=== PATIENT | male | born 1960 | race Caucasian/White ===

== ENCOUNTER 2016-11-18 15:00 | Emergency (ER) | payer OTHER ==
--- NOTE | 2016-11-18 15:09 | ED ---
General Adult HPI - General Source: RN notes reviewed <Ole Orantes - Last Filed: 11/18/16 16:50> <Leonid Masters - Last Filed: 11/18/16 18:14> - General Stated complaint: Sob Time Seen by Provider: 11/18/16 15:00 - History of Present Illness Initial comments: This is a 55-year-old male who has been diagnosed with stage IV cancer he is unable to tell me exactly where the cancer started. Patient states he has tumors in his neck back and chest. Patient states he called EMS today because he was short of breath. EMS stated when they got there the patient was quite short of breath and put him on some oxygen and started an IV in and began transporting the patient. At that point and the patient's shortness of breath got much improved. Patient also complains of chest pain and abdominal pain which she states is been chronic for at least 6 weeks. Patient states his been no change in that status. Patient denies any recent fever chills or cough. Patient denies headache patient denies any numbness or weakness. Patient denies any injury or trauma. Patient states he is receiving chemo is not on the last treatment was. (Ole Orantes) - Related Data Home Medications Medication Instructions Recorded Confirmed Chromium Picolinate 200 mcg PO DAILY 11/18/16 11/18/16 Levofloxacin [Levaquin] 750 mg PO DAILY 11/18/16 11/18/16 Metoclopramide HCl [Reglan] 10 mg PO TID 11/18/16 11/18/16 amLODIPine [Norvasc] 5 mg PO DAILY 11/18/16 11/18/16 levETIRAcetam [Keppra] 500 mg PO DAILY 11/18/16 11/18/16 oxyCODONE-APAP 5-325MG [Percocet 1 tab PO Q4HR PRN 11/18/16 11/18/16 5-325 mg] predniSONE 40 mg PO DAILY 11/18/16 11/18/16 Allergies Allergy/AdvReac Type Severity Reaction Status Date / Time No Known Allergies Allergy Verified 11/18/16 15:12 Review of Systems ROS Other: All systems not noted in ROS Statement are negative. <Ole Orantes - Last Filed: 11/18/16 16:50> ROS Other: All systems not noted in ROS Statement are negative. <GuerreroLeonid - Last Filed: 11/18/16 18:14> ROS Statement: Those systems with pertinent positive or pertinent negative responses have been documented in the HPI. General Exam <Ole Orantes - Last Filed: 11/18/16 16:50> <GuerreroLeonid - Last Filed: 11/18/16 18:14> - General Exam Comments Initial Comments: GENERAL: Patient is cachectic. ENT: Neck is soft and supple. No significant lymphadenopathy is noted. Oropharynx is clear. Moist mucous membranes. Patient is a tumor left-sided neck EYES: The sclera were anicteric and conjunctiva were pink and moist. Extraocular movements were intact and pupils were equal round and reactive to light. Eyelids were unremarkable. PULMONARY: Patient has diminished breath sounds throughout CARDIOVASCULAR: There is a regular rate and rhythm without any murmurs gallops or rubs. Patient has a tumor on his anterior chest wall ABDOMEN: Abdomen has mild tenderness diffusely no rebound or guarding SKIN: Skin is clear with no lesions or rashes and otherwise unremarkable. NEUROLOGIC: Patient is alert and oriented x3. Cranial nerves II through XII are grossly intact. Motor and sensory are also intact. Normal speech, volume and content. Symmetrical smile. MUSCULOSKELETAL: Normal extremities with adequate strength and full range of motion. Patient has 3+ edema bilaterally LYMPHATICS: No significant lymphadenopathy is noted PSYCHIATRIC: Normal psychiatric evaluation. (Ole Orantes) Course <Ole Orantes - Last Filed: 11/18/16 16:50> <GuerreroLeonid - Last Filed: 11/18/16 18:14> Vital Signs 11/18/16 11/18/16 11/18/16 15:03 16:10 17:00 Pulse Rate 98 100 98 Respiratory 20 18 18 Rate Blood Pressure 114/76 135/81 140/69 O2 Sat by Pulse 99 94 L 96 Oximetry - Reevaluation(s) Reevaluation #1: 11/18/16 18:12 Patient is feeling totally improved and better normally wants be discharged I did discuss the findings with him he does have close follow-up with his daughter he will be discharged CAT scan shows no acute evidence of pulmonary embolism because have evidence of pulmonary tumors (Leonid Masters) Medical Decision Making - Lab Data Result diagrams: 11/18/16 15:41 11/18/16 15:41 <Ole Orantes - Last Filed: 11/18/16 16:50> - Lab Data Result diagrams: 11/18/16 15:41 11/18/16 15:41 <Leonid Masters - Last Filed: 11/18/16 18:14> - Medical Decision Making EKG shows normal sinus rhythm at 70 bpm [place] interval is 126 QRS is 78 QT interval 366 QTC is 417. Patient's EKG shows no ST segment elevation or depression or T-wave abnormalities are noted Dr. Masters will be taking over the care of this patient at 5 PM (Ole Orantes) - Lab Data Lab Results 11/18/16 11/18/16 11/18/16 Range/Units 15:41 15:41 15:41 WBC 10.8 H (3.8-10.6) k/uL RBC 3.04 L (4.30-5.90) m/uL Hgb 8.9 L (13.0-17.5) gm/dL Hct 26.7 L (39.0-53.0) % MCV 87.9 (80.0-100.0) fL MCH 29.4 (25.0-35.0) pg MCHC 33.4 (31.0-37.0) g/dL RDW 17.0 H (11.5-15.5) % Plt Count 316 (150-450) k/uL Neutrophils % 85 % Lymphocytes % 11 % Monocytes % 3 % Eosinophils % 0 % Basophils % 0 % Neutrophils # 9.1 H (1.3-7.7) k/uL Lymphocytes # 1.2 (1.0-4.8) k/uL Monocytes # 0.3 (0-1.0) k/uL Eosinophils # 0.0 (0-0.7) k/uL Basophils # 0.0 (0-0.2) k/uL Hypochromasia Slight Poikilocytosis Slight Anisocytosis Slight PT 10.9 (9.0-12.0) sec INR 1.1 (<1.1) APTT 22.0 (22.0-30.0) sec D-Dimer 3.65 H (<0.60) mg/L FEU Sodium 135 L (137-145) mmol/L Potassium 4.4 (3.5-5.1) mmol/L Chloride 101 (98-107) mmol/L Carbon Dioxide 29 (22-30) mmol/L Anion Gap 5 mmol/L BUN 23 H (9-20) mg/dL Creatinine 0.60 L (0.66-1.25) mg/dL Est GFR (MDRD) Af Amer >60 (>60 ml/min/1.73 sqM) Est GFR (MDRD) Non-Af >60 (>60 ml/min/1.73 sqM) Glucose 92 (74-99) mg/dL Calcium 8.9 (8.4-10.2) mg/dL Magnesium 2.0 (1.6-2.3) mg/dL Total Bilirubin 0.3 (0.2-1.3) mg/dL AST 34 (17-59) U/L ALT 29 (21-72) U/L Alkaline Phosphatase 85 (38-126) U/L Total Creatine Kinase (55-170) U/L CK-MB (CK-2) (0.0-2.4) ng/mL CK-MB (CK-2) Rel Index Troponin I (0.000-0.034) ng/mL NT-Pro-B Natriuret Pep pg/mL Total Protein 5.2 L (6.3-8.2) g/dL Albumin 2.3 L (3.5-5.0) g/dL 11/18/16 11/18/16 Range/Units 15:41 15:41 WBC (3.8-10.6) k/uL RBC (4.30-5.90) m/uL Hgb (13.0-17.5) gm/dL Hct (39.0-53.0) % MCV (80.0-100.0) fL MCH (25.0-35.0) pg MCHC (31.0-37.0) g/dL RDW (11.5-15.5) % Plt Count (150-450) k/uL Neutrophils % % Lymphocytes % % Monocytes % % Eosinophils % % Basophils % % Neutrophils # (1.3-7.7) k/uL Lymphocytes # (1.0-4.8) k/uL Monocytes # (0-1.0) k/uL Eosinophils # (0-0.7) k/uL Basophils # (0-0.2) k/uL Hypochromasia Poikilocytosis Anisocytosis PT (9.0-12.0) sec INR (<1.1) APTT (22.0-30.0) sec D-Dimer (<0.60) mg/L FEU Sodium (137-145) mmol/L Potassium (3.5-5.1) mmol/L Chloride (98-107) mmol/L Carbon Dioxide (22-30) mmol/L Anion Gap mmol/L BUN (9-20) mg/dL Creatinine (0.66-1.25) mg/dL Est GFR (MDRD) Af Amer (>60 ml/min/1.73 sqM) Est GFR (MDRD) Non-Af (>60 ml/min/1.73 sqM) Glucose (74-99) mg/dL Calcium (8.4-10.2) mg/dL Magnesium (1.6-2.3) mg/dL Total Bilirubin (0.2-1.3) mg/dL AST (17-59) U/L ALT (21-72) U/L Alkaline Phosphatase (38-126) U/L Total Creatine Kinase <20 L (55-170) U/L CK-MB (CK-2) 1.4 (0.0-2.4) ng/mL CK-MB (CK-2) Rel Index 0.0 Troponin I 0.013 (0.000-0.034) ng/mL NT-Pro-B Natriuret Pep 2440 pg/mL Total Protein (6.3-8.2) g/dL Albumin (3.5-5.0) g/dL Disposition <Ole Orantes - Last Filed: 11/18/16 16:50> <Leonid Masters - Last Filed: 11/18/16 18:14> Clinical Impression: Acute bronchospasm, Dyspnea, Lung cancer Disposition: HOME SELF-CARE Condition: Good Instructions: Bronchospasm (ED) Referrals: Jeison Dasilva MD [Primary Care Provider] - 1-2 days
--- NOTE | 2016-11-18 15:47 | XR ---
EXAMINATION TYPE: XR chest 2V DATE OF EXAM: 11/18/2016 COMPARISON: NONE HISTORY: Difficulty breathing TECHNIQUE: Frontal and lateral views of the chest are obtained. FINDINGS: There are numerous rounded masses throughout the lungs that measure up to 3.5 cm. There is conglomerate density at the posterior lung bases. There are chest leads. There is no gross heart jesus alberto lure. Heart size is within normal limits. IMPRESSION: Extensive masses throughout both lungs consistent with metastatic disease. No heart fail ure.
[2016-11-18 16:01] LABS: Anisocytosis Slight; Basophils % (A) 0 %; CH 28.7; CHCM 32.9; Eosinophils % (A) 0 %; HCT 26.7 % (39.0-53.0); HDW 3.42; HGB 8.9 gm/dL (13.0-17.5); Hypochromasia Slight; Luc # (Auto) 0.09; Luc % (Auto) 1; Lymphocytes # (A) 1.2 k/uL (1.0-4.8); Lymphocytes % (A) 11 %; MCH 29.4 pg (25.0-35.0); MCHC 33.4 g/dL (31.0-37.0); MCV 87.9 fL (80.0-100.0); Mean Platelet Volume 6.8; Monocytes # (A) 0.3 k/uL (0-1.0); Monocytes % (A) 3 %; Neutrophils # (A) 9.1 k/uL (1.3-7.7); Neutrophils % (A) 85 %; Poikilocytosis Slight; RBC 3.04 m/uL (4.30-5.90); WBC 10.8 k/uL (3.8-10.6); WBC (Perox) 10.06
[2016-11-18 16:18] LABS: ALT 29 U/L (21-72); AST 34 U/L (17-59); Alkaline Phosphatase 85 U/L (38-126); Anion Gap 5 mmol/L; Blood Urea Nitrogen 23 mg/dL (9-20); Calcium 8.9 mg/dL (8.4-10.2); Carbon Dioxide 29 mmol/L (22-30); Chloride 101 mmol/L (98-107); Glucose 92 mg/dL (74-99); Non-African American GFR(MDRD) >60 (>60 ml/min/1.73 sqM); Potassium 4.4 mmol/L (3.5-5.1); Sodium 135 mmol/L (137-145); Total Bilirubin 0.3 mg/dL (0.2-1.3); Total Protein 5.2 g/dL (6.3-8.2)
[2016-11-18 16:20] LABS: Creatine Kinase <20 U/L (55-170)
[2016-11-18 16:25] LABS: INR 1.1 (<1.1); Prothrombin Time 10.9 sec (9.0-12.0)
[2016-11-18 16:33] LABS: Creatine Kinase MB 1.4 ng/mL (0.0-2.4); Troponin I 0.013 ng/mL (0.000-0.034)
[2016-11-18] MEDS ORDERED: RX INFO: IV CONTRAST WAS GIVEN 1 EACH MISC MISCELLANE PRN (16:49)
--- NOTE | 2016-11-18 17:35 | CT ---
EXAMINATION TYPE: CT chest angio for PE DATE OF EXAM: 11/18/2016 COMPARISON: NONE HISTORY: shortness of breath CT DLP: 139.4 mGycm Automated exposure control for dose reduction was used. CONTRAST: CT Chest for pulmonary embolism performed with with IV Contrast, patient injected with 100 mL of Omni paque 350. There are 3-D post processed images. FINDINGS: There are numerous soft tissue masses throughout the lungs that measure up to 3 cm. There is bilatera l bronchial adenopathy. There is subcarinal adenopathy with a 3.5 cm lymph node. Heart size is normal . I see no filling defects in the pulmonary arteries. There is consolidation in the right lower lobe with multiple air bubbles. This appears to be a cavity that contains air and fluid. This measures 5 x 6 cm. There is no evidence of aortic aneurysm or dissection. There is some 4 cm destruction of an an terior right upper rib with pleural thickening. There is a small left pleural effusion. IMPRESSION: No evidence of pulmonary embolism. Extensive bilateral pulmonary masses consistent with metastatic ma lignancy. Fluid and air-filled cavity in the right lower lobe could be necrotic tumor or lung abscess . Extensive mediastinal and bronchial adenopathy. Destructive rib lesion consistent with metastatic dis ease.
[2016-11-18 18:55] VITALS: BP 136/76; PULSE 77; RESP 20; TEMP 98.4
== END 2016-11-18 18:55 | disposition home or self-care (01) ==
LOC: EC 15:00
DX: J98.01 Acute bronchospasm (principal); C34.90 Malignant neoplasm of unspecified part of unspecified bronchus or lung; Z79.52 Long term (current) use of systemic steroids; Z79.899 Other long term (current) drug therapy
CPT/HCPCS: 36415; 93005; 85379; 83880; 80053; 82550; 82553; 83735; 84484; 85025; 85610; 85730; 71020; 71275; 99285; Q9967

== ENCOUNTER 2016-11-23 12:47 | Inpatient (IN) | payer OTHER ==
[2016-11-23] MEDS ORDERED: SODIUM CHLORIDE 0.9% 1,000 ML IV STA (13:03)
--- NOTE | 2016-11-23 13:07 | ED ---
General Adult HPI - General Chief complaint: Weakness Stated complaint: Weakness Time Seen by Provider: 11/23/16 12:50 Source: patient, family, RN notes reviewed Mode of arrival: wheelchair Limitations: no limitations - History of Present Illness Initial comments: This is a 55-year-old male with a past medical history significant for melanoma on his back. Patient now has stage IV melanoma is metastasized to his lung and neck. Patient comes in today because he has not been able to eat since he left the hospital last time he was offered admission at that time but he refused. Patient comes in states he is extremely weak and can't even sit up in bed on his own. Patient denies any nausea but states she's been unable to eat or drink lately. Patient states he has abdominal pain but that has been chronic. Patient denies any recent fever or chills. Patient denies any cough patient denies any recent injury or trauma. Patient denies headache patient denies numbness or weakness. Patient denies lightheadedness dizziness or near syncopal episode. - Related Data Home Medications Medication Instructions Recorded Confirmed Chromium Picolinate 200 mcg PO DAILY 11/18/16 11/23/16 amLODIPine [Norvasc] 5 mg PO DAILY 11/18/16 11/23/16 levETIRAcetam [Keppra] 500 mg PO BID 11/18/16 11/23/16 oxyCODONE-APAP 5-325MG [Percocet 1 tab PO Q4HR PRN 11/18/16 11/23/16 5-325 mg] Albuterol Sulfate [Ventolin Hfa] 2 puff INHALATION RT-Q6H PRN 11/23/16 11/23/16 Ipratropium-Albuterol Nebulize 3 ml INHALATION RT-QID 11/23/16 11/23/16 [Duoneb 0.5 mg-3 mg/3 ml Soln] Ondansetron [Zofran ODT] 4 mg PO Q8HR PRN 11/23/16 11/23/16 Allergies Allergy/AdvReac Type Severity Reaction Status Date / Time Penicillins Allergy Rash/Hives Verified 11/23/16 13:15 Review of Systems ROS Statement: Those systems with pertinent positive or pertinent negative responses have been documented in the HPI. ROS Other: All systems not noted in ROS Statement are negative. Past Medical History Past Medical History: Hypertension, Seizure Disorder Additional Past Medical History / Comment(s): Stage IV Melanoma - multiple tumors all over body History of Any Multi-Drug Resistant Organisms: None Reported Past Surgical History: No Surgical Hx Reported Past Psychological History: Anxiety Smoking Status: Current every day smoker Past Alcohol Use History: None Reported Past Drug Use History: None Reported General Exam - General Exam Comments Initial Comments: GENERAL: Patient is well-developed and well-nourished. Patient is nontoxic and well- hydrated and is in no acute distress. Patient is very cachectic ENT: Neck is soft and supple. No significant lymphadenopathy is noted. Oropharynx is clear. Dry mucous membranes. Neck has full range of motion without eliciting any pain. EYES: The sclera were anicteric and conjunctiva were pink and moist. Extraocular movements were intact and pupils were equal round and reactive to light. Eyelids were unremarkable. PULMONARY: Unlabored respirations. Good breath sounds bilaterally. No audible rales rhonchi or wheezing was noted. CARDIOVASCULAR: There is a regular rate and rhythm without any murmurs gallops or rubs. ABDOMEN: Mild tenderness diffusely. No palpable organomegaly was noted. There is no palpable pulsatile mass. SKIN: Skin is clear with no lesions or rashes and otherwise unremarkable. NEUROLOGIC: Patient is alert and oriented x3. Cranial nerves II through XII are grossly intact. Motor and sensory are also intact. Normal speech, volume and content. Symmetrical smile. MUSCULOSKELETAL: Normal extremities with adequate strength and full range of motion. No lower extremity swelling or edema. No calf tenderness. LYMPHATICS: No significant lymphadenopathy is noted PSYCHIATRIC: Normal psychiatric evaluation. Normal interpersonal interactions appears functionally intact in deals appropriately with others. No signs of depression. No signs of anxiety. Limitations: no limitations Course Vital Signs 11/23/16 11/23/16 12:50 15:05 Temperature 96.9 F L Pulse Rate 99 74 Respiratory 18 16 Rate Blood Pressure 110/73 126/72 O2 Sat by Pulse 95 100 Oximetry Medical Decision Making - Medical Decision Making EKG shows normal sinus rhythm at 94 bpm ID interval 132 QRS is 84 QT interval 378 QTC is 472 per patient's EKG shows no ST segment elevation or depression or T-wave abnormality is noted. - Lab Data Result diagrams: 11/23/16 13:29 11/23/16 13:29 Lab Results 07/02/0111/23/16 11/23/16 Range/Units 13:29 13:29 13:29 WBC 13.5 H (3.8-10.6) k/uL RBC 3.45 L (4.30-5.90) m/uL Hgb 9.9 L (13.0-17.5) gm/dL Hct 30.4 L (39.0-53.0) % MCV 88.1 (80.0-100.0) fL MCH 28.8 (25.0-35.0) pg MCHC 32.7 (31.0-37.0) g/dL RDW 16.6 H (11.5-15.5) % Plt Count 403 (150-450) k/uL Neutrophils % 85 % Lymphocytes % 12 % Monocytes % 2 % Eosinophils % 1 % Basophils % 0 % Neutrophils # 11.4 H (1.3-7.7) k/uL Lymphocytes # 1.6 (1.0-4.8) k/uL Monocytes # 0.3 (0-1.0) k/uL Eosinophils # 0.1 (0-0.7) k/uL Basophils # 0.0 (0-0.2) k/uL Poikilocytosis Slight Anisocytosis Slight PT (9.0-12.0) sec INR (<1.1) APTT (22.0-30.0) sec Sodium 137 (137-145) mmol/L Potassium 4.6 (3.5-5.1) mmol/L Chloride 103 (98-107) mmol/L Carbon Dioxide 26 (22-30) mmol/L Anion Gap 8 mmol/L BUN 30 H (9-20) mg/dL Creatinine 0.70 (0.66-1.25) mg/dL Est GFR (MDRD) Af Amer >60 (>60 ml/min/1.73 sqM) Est GFR (MDRD) Non-Af >60 (>60 ml/min/1.73 sqM) Glucose 85 (74-99) mg/dL Plasma Lactic Acid Stephan (0.7-2.0) mmol/L Calcium 8.9 (8.4-10.2) mg/dL Magnesium 2.2 (1.6-2.3) mg/dL Total Bilirubin 0.6 (0.2-1.3) mg/dL AST 32 (17-59) U/L ALT 24 (21-72) U/L Alkaline Phosphatase 80 (38-126) U/L Total Creatine Kinase <20 L (55-170) U/L CK-MB (CK-2) 1.3 (0.0-2.4) ng/mL CK-MB (CK-2) Rel Index 0.0 Troponin I <0.012 (0.000-0.034) ng/mL Total Protein 5.0 L (6.3-8.2) g/dL Albumin 2.2 L (3.5-5.0) g/dL Urine Color Urine Appearance (Clear) Urine pH (5.0-8.0) Ur Specific [place] (1.001-1.035) Urine Protein (Negative) Urine Glucose (UA) (Negative) Urine Ketones (Negative) Urine Blood (Negative) Urine Nitrite (Negative) Urine Bilirubin (Negative) Urine Urobilinogen (<2.0) mg/dL Ur Leukocyte Esterase (Negative) Urine RBC (0-5) /hpf Urine WBC (0-5) /hpf Ur Squamous Epith Cells (0-4) /hpf Urine Bacteria (None) /hpf Urine Mucus (None) /hpf 11/23/16 11/23/16 11/23/16 Range/Units 13:29 13:29 14:48 WBC (3.8-10.6) k/uL RBC (4.30-5.90) m/uL Hgb (13.0-17.5) gm/dL Hct (39.0-53.0) % MCV (80.0-100.0) fL MCH (25.0-35.0) pg MCHC (31.0-37.0) g/dL RDW (11.5-15.5) % Plt Count (150-450) k/uL Neutrophils % % Lymphocytes % % Monocytes % % Eosinophils % % Basophils % % Neutrophils # (1.3-7.7) k/uL Lymphocytes # (1.0-4.8) k/uL Monocytes # (0-1.0) k/uL Eosinophils # (0-0.7) k/uL Basophils # (0-0.2) k/uL Poikilocytosis Anisocytosis PT 11.4 (9.0-12.0) sec INR 1.1 (<1.1) APTT 21.9 L (22.0-30.0) sec Sodium (137-145) mmol/L Potassium (3.5-5.1) mmol/L Chloride (98-107) mmol/L Carbon Dioxide (22-30) mmol/L Anion Gap mmol/L BUN (9-20) mg/dL Creatinine (0.66-1.25) mg/dL Est GFR (MDRD) Af Amer (>60 ml/min/1.73 sqM) Est GFR (MDRD) Non-Af (>60 ml/min/1.73 sqM) Glucose (74-99) mg/dL Plasma Lactic Acid Stephan 1.3 (0.7-2.0) mmol/L Calcium (8.4-10.2) mg/dL Magnesium (1.6-2.3) mg/dL Total Bilirubin (0.2-1.3) mg/dL AST (17-59) U/L ALT (21-72) U/L Alkaline Phosphatase (38-126) U/L Total Creatine Kinase (55-170) U/L CK-MB (CK-2) (0.0-2.4) ng/mL CK-MB (CK-2) Rel Index Troponin I (0.000-0.034) ng/mL Total Protein (6.3-8.2) g/dL Albumin (3.5-5.0) g/dL Urine Color Yellow Urine Appearance Cloudy (Clear) Urine pH 5.5 (5.0-8.0) Ur Specific [place] 1.032 (1.001-1.035) Urine Protein 1+ H (Negative) Urine Glucose (UA) Negative (Negative) Urine Ketones 1+ H (Negative) Urine Blood Negative (Negative) Urine Nitrite Negative (Negative) Urine Bilirubin 1+ H (Negative) Urine Urobilinogen <2.0 (<2.0) mg/dL Ur Leukocyte Esterase Negative (Negative) Urine RBC 1 (0-5) /hpf Urine WBC 4 (0-5) /hpf Ur Squamous Epith Cells <1 (0-4) /hpf Urine Bacteria Rare H (None) /hpf Urine Mucus Few H (None) /hpf Disposition Clinical Impression: Dehydration, Generalized weakness, Metastatic cancer to lung, Liver mass, Rib lesion, Cavitating mass in right lower lung lobe Disposition: ADMITTED IP TO THIS HOSP Referrals: eJison Dasilva MD [Primary Care Provider] - 1-2 days Time of Disposition: 15:38
[2016-11-23 13:42] LABS: Anisocytosis Slight; Basophils % (A) 0 %; CHCM 33.2; Eosinophils # (A) 0.1 k/uL (0-0.7); Eosinophils % (A) 1 %; HCT 30.4 % (39.0-53.0); HDW 3.44; HGB 9.9 gm/dL (13.0-17.5); Luc # (Auto) 0.08; Luc % (Auto) 1; Lymphocytes # (A) 1.6 k/uL (1.0-4.8); Lymphocytes % (A) 12 %; MCH 28.8 pg (25.0-35.0); MCHC 32.7 g/dL (31.0-37.0); MCV 88.1 fL (80.0-100.0); Monocytes # (A) 0.3 k/uL (0-1.0); Monocytes % (A) 2 %; Neutrophils # (A) 11.4 k/uL (1.3-7.7); Neutrophils % (A) 85 %; Poikilocytosis Slight; RBC 3.45 m/uL (4.30-5.90); RDW 16.6 % (11.5-15.5); WBC 13.5 k/uL (3.8-10.6); WBC (Perox) 13.41
[2016-11-23 13:51] LABS: ALT 24 U/L (21-72); AST 32 U/L (17-59); Alkaline Phosphatase 80 U/L (38-126); Anion Gap 8 mmol/L; Blood Urea Nitrogen 30 mg/dL (9-20); Calcium 8.9 mg/dL (8.4-10.2); Carbon Dioxide 26 mmol/L (22-30); Chloride 103 mmol/L (98-107); Glucose 85 mg/dL (74-99); Magnesium 2.2 mg/dL (1.6-2.3); Non-African American GFR(MDRD) >60 (>60 ml/min/1.73 sqM); Potassium 4.6 mmol/L (3.5-5.1); Sodium 137 mmol/L (137-145); Total Bilirubin 0.6 mg/dL (0.2-1.3)
[2016-11-23 13:56] LABS: INR 1.1 (<1.1)
[2016-11-23 13:57] LABS: Partial Thromboplastin Time 21.9 sec (22.0-30.0); Prothrombin Time 11.4 sec (9.0-12.0)
[2016-11-23 14:01] LABS: Creatine Kinase <20 U/L (55-170)
[2016-11-23 14:13] LABS: Creatine Kinase MB 1.3 ng/mL (0.0-2.4); Troponin I <0.012 ng/mL (0.000-0.034)
[2016-11-23] MEDS ORDERED: RX INFO: IV CONTRAST WAS GIVEN 1 EACH MISC MISCELLANE PRN (14:13)
--- NOTE | 2016-11-23 14:59 | CT ---
EXAMINATION TYPE: CT abdomen pelvis w con DATE OF EXAM: 11/23/2016 COMPARISON: NONE HISTORY: Weakness; Stage IV Melanoma with mulitple tumors CT DLP: 385.90 mGycm Automated exposure control for dose reduction was used. TECHNIQUE: Helical acquisition of images was performed from the lung bases through the pelvis. CONTRAST: Performed without Oral Contrast and with IV Contrast, patient injected with 100 ml mL of Omnipaque 30 0. FINDINGS: There are multiple rounded masses in the visualized lower lung campos. There is a 5 cm cavitating mas s in the right lower lobe that contains fluid and air. There is a 2 cm hypodensity in the right lobe of the liver. Bile ducts are not dilated. Gallbladder a ppears normal. There is no evidence of a splenic mass. There are multiple small calcified splenic gra nulomata. There is no adrenal mass. Kidneys show satisfactory contrast opacification. There is no hydronephrosi s. There is no retroperitoneal adenopathy. There is moderate ascites fluid noted. I see no intestinal wall thickening. There is no sign of a bowel obstruction. Bladder distends smoothly. I see no bony d estructive process. There is bilateral pleural effusion noted. Heart size is normal. IMPRESSION: MULTIPLE PULMONARY MASSES CONSISTENT WITH DIFFUSE METASTATIC DISEASE. 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 ASCITES. 2 CM HYPODENSE LIVER LESION COULD RELATE TO METASTATIC DISEASE.
[2016-11-23 15:01] LABS: Appearance,Urine Cloudy (Clear); Bacteria,Urine Rare /hpf; Bilirubin,Urine 1+ (Negative); Glucose,Urine (UA) Negative (Negative); Ketones,Urine 1+ (Negative); Leukocyte Esterase,Urine Negative (Negative); Mucus,Urine Few /hpf; Nitrite,Urine Negative (Negative); PH, Urine 5.5 (5.0-8.0); Particle Count 9933; Protein,Urine 1+ (Negative); RBC,Urine 1 /hpf (0-5); Specific Gravity,Urine 1.032 (1.001-1.035); Squamous Epithelial Cell,Urine <1 /hpf (0-4); UA Billing (MACRO vs. MICRO) MICRO; Urobilinogen,Urine <2.0 mg/dL (<2.0); WBC,Urine 4 /hpf (0-5)
[2016-11-23] MEDS ORDERED: SODIUM CHLORIDE 0.9% 1,000 ML IV ONE (15:38)
[2016-11-23] MEDS ORDERED: ONDANSETRON 4 MG/2 ML VIAL IVP PRN (15:41)
[2016-11-23] MEDS ORDERED: LEVOFLOXACIN 750MG-D5W PMX 750 MG in DEXTROSE/WATER 1 150ML.BAG IVPB SCH (16:15)
[2016-11-23] MEDS: LEVOFLOXACIN 750MG-D5W PMX 750 MG in DEXTROSE/WATER 1 150ML.BAG IVPB STA ×2 (16:39→18:26)
[2016-11-23 16:50] VITALS: BMI 19.8
[2016-11-23] MEDS ORDERED: ALBUTEROL NEBULIZED 2.5 MG/3 ML INHALATION PRN ×2 (17:55→22:30)
[2016-11-23] MEDS: HYDROmorphone 1 MG/ML 1 ML SYRINGE IVP PRN (18:26)
[2016-11-23] MEDS: IPRATROPIUM-ALBUTEROL 3 ML NEB INHALATION SCH (19:42)
[2016-11-23] MEDS: levETIRAcetam 500 MG TAB PO SCH (19:48)
[2016-11-23] MEDS: oxyCODONE-APAP 5-325MG 1 EACH TAB PO PRN (19:49)
[2016-11-23] MEDS: NICOTINE 14MG/24HR PATCH TRANSDERM SCH (22:48)
[2016-11-24] MEDS: HYDROmorphone 1 MG/ML 1 ML SYRINGE IVP PRN ×3 (05:59→16:43)
[2016-11-24] MEDS: IPRATROPIUM-ALBUTEROL 3 ML NEB INHALATION SCH ×2 (07:26→11:45)
[2016-11-24] MEDS: oxyCODONE-APAP 5-325MG 1 EACH TAB PO PRN (08:14)
[2016-11-24] MEDS: levETIRAcetam 500 MG TAB PO SCH (08:14)
[2016-11-24] MEDS: NICOTINE 14MG/24HR PATCH TRANSDERM SCH (08:14)
[2016-11-24] MEDS ORDERED: amLODIPine 5 MG TAB PO SCH (09:00)
[2016-11-24] MEDS: NYSTATIN 100,000 UNIT/ML SUSP 500,000 UNIT/5 ML CUP PO SCH ×2 (12:31→16:47)
--- NOTE | 2016-11-24 12:54 | P.HPIM ---
History of Present Illness H&P Date: 11/24/16 Chief Complaint: Severe dyspnea and shortness of breath, obstructive pneumonitis , advanced m 55-year-old male one of Dr. Dasilva's patient who SEEN lost at [facility] few weeks ago for refractory seizure and recurrent pneumonia patient was treated again last week at [facility] for few days and has been leaving the hospital sometimes AGAINST MEDICAL ADVICE is frustrated with the end-stage advanced melanoma with metastasis all over his body is going through his metastasis involve multiple spot in the brain multiple spot in the lungs liver and lymph node. Patient seen hematology oncology previously Allee management can be done is an immunotherapy patient had an immune suppressive condition was a contraindication. Patient was in the emergency room 2 days it earlier for worsening shortness of breath dyspnea severe weakness generalized fatigue not been able to tolerate any food or fluid and persistent nausea with significant weight loss he sign AMA at the time refused to stay in the hospital. [facility] with severe generalized fatigue and weakness and tiredness not been able to tolerate any food or fluid down significant shortness of breath cough wheezes with worsening respiration at the time. Was seen and evaluated surprisingly his chest x-ray showed multiple spot of metastasis along with cavitation and refractory obstructive pneumonitis started on gram-negative coverage and admitted to the hospital with above problem. Review of Systems Constitutional: Reports anorexia, Reports chronic headaches, Reports chronic pain, Reports daytime sleepiness, Reports fatigue, Reports lethargy, Reports malaise, Reports night sweats, Reports poor appetite, Reports sweats, Reports weakness, Reports weight loss, Denies as per HPI, Denies chills, Denies fever, Denies weight gain Eyes: bilateral as per HPI Ears: deny: decreased hearing Ears, nose, mouth and throat: Reports ant. neck pain, Reports dysphagia, Reports nasal congestion, Reports sinus pressure, Reports swelling in mouth, Denies as per HPI, Denies bleeding gums, Denies dental pain, Denies epistaxis, Denies headache, Denies hoarseness, Denies mouth pain, Denies nasal discharge, Denies neck fullness/pressure, Denies neck lump, Denies nose pain, Denies odynophagia, Denies post-nasal drip, Denies sinus pain, Denies swelling in throat, Denies sore throat, Denies vertigo, Denies voice changes Cardiovascular: Reports chest pain, Reports decreased exercise tolerance, Reports dyspnea on exertion, Reports edema, Reports high blood pressure, Reports irregular heart beat, Reports leg edema, Reports lightheadedness, Reports orthopnea, Reports paroxysmal nocturnal dyspnea, Reports rapid heart beat, Reports shortness of breath, Denies as per HPI, Denies claudication, Denies palpitations, Denies phlebitis, Denies syncope Respiratory: Reports congestion, Reports cough, Reports cough with sputum, Reports dyspnea, Reports pain, Reports respiratory infections, Reports wheezing , Denies as per HPI, Denies excessive sputum, Denies hemoptysis, Denies home oxygen, Denies pain on inspiration, Denies pleurisy, Denies sleep apnea, Denies snoring Gastrointestinal: Reports abdominal pain, Reports bloating, Reports constipation , Reports dyspepsia, Reports indigestion, Reports loss of appetite, Reports nausea, Reports vomiting, Denies as per HPI, Denies belching, Denies BRBPR, Denies change in bowel habits, Denies coffee ground emesis, Denies diarrhea, Denies early satiety, Denies excessive gas, Denies heartburn, Denies hematemesis , Denies hematochezia, Denies jaundice, Denies lactose intolerance, Denies melena Genitourinary: Reports testicular pain, Denies as per HPI, Denies decreased libido, Denies difficulties fathering child, Denies discharge, Denies dysuria, Denies erectile dysfunction, Denies flank pain, Denies genital pain, Denies genital sores, Denies hematuria, Denies impotence, Denies incontinence, Denies kidney stones, Denies nocturia, Denies polyuria, Denies testicular lump, Denies urinary frequency, Denies urinary hesitancy, Denies urinary retention Musculoskeletal: Reports limitation of motion, Reports low back pain, Reports muscle cramps, Reports myalgias, Reports neck pain, Reports neck stiffness, Denies as per HPI, Denies arm numbness/tingling, Denies atrophy, Denies fractures, Denies frequent falls, Denies gait dysfunction, Denies hot joints, Denies leg numbness/tingling, Denies loss of height, Denies morning stiffness, Denies muscle weakness, Denies prior amputations, Denies redness of joints, Denies shooting arm pain, Denies shooting leg pain Musculoskeletal: bilateral: ankle pain Integumentary: Reports change in hair/nails, Reports growths, Reports onychomycosis, Reports pruritus, Reports rash, Denies as per HPI, Denies acne, Denies boils, Denies brittle nails, Denies color changes, Denies darkening of skin, Denies depigmentation, Denies dryness, Denies foot/leg ulcers, Denies hirsutism, Denies lesions, Denies sores, Denies striae, Denies unusual bruising , Denies wounds Neurological: Reports ataxia, Reports confusion, Reports convulsions, Reports gait dysfunction, Reports head injury, Reports headaches, Reports memory loss, Reports motor disturbance, Reports numbness, Reports paralysis, Reports paresthesias, Reports seizures, Reports sensory deficit, Reports syncope, Reports tingling, Denies as per HPI, Denies aphasia, Denies balance difficulties , Denies burning pain, Denies change in mentation, Denies change in smell/taste , Denies change in speech, Denies double vision, Denies hearing difficulties, Denies lack of coordination, Denies loss of vision, Denies migraines, Denies spasticity, Denies tic, Denies transient paralysis, Denies tremors, Denies vertigo, Denies weakness, Denies visual changes Psychiatric: Reports anhedonia, Reports anxiety, Reports depression, Reports disorientation, Reports mood swings, Reports paranoia, Reports sadness/ tearfulness, Denies as per HPI, Denies anxiety attacks, Denies change in appetite, Denies change in libido, Denies change in sleep habits, Denies confusion, Denies difficulty concentrating, Denies hallucinations, Denies hopelessness, Denies hypersomnia, Denies insomnia, Denies irritability, Denies memory loss, Denies sleep disturbances, Denies suicidal ideation Endocrine: Reports nocturia, Reports palpitations, Reports polydipsia, Denies as per HPI, Denies cold intolerance, Denies deepening of the voice, Denies excessive sweating, Denies excessive thirst, Denies fatigue, Denies flushing, Denies heat intolerance, Denies high blood sugars, Denies increase in ring/shoe/ hat size, Denies low blood sugars, Denies polyphagia, Denies polyuria, Denies proptosis, Denies recent glucocorticoid use, Denies thyroid mass, Denies weight change Hematologic/Lymphatic: Reports easy bruising, Denies as per HPI, Denies easy bleeding, Denies lymphadenopathy, Denies lymphedema, Denies thrombophilia Allergic/Immunologic: Reports allergic rhinitis, Denies as per HPI, Denies anaphylaxis, Denies angioedema, Denies gluten intolerance, Denies persistent infections, Denies seasonal allergies, Denies urticaria, Denies wheezing Past Medical History Past Medical History: Hypertension, Seizure Disorder Additional Past Medical History / Comment(s): Stage IV Melanoma - multiple tumors all over body History of Any Multi-Drug Resistant Organisms: None Reported Past Surgical History: No Surgical Hx Reported Past Anesthesia/Blood Transfusion Reactions: No Reported Reaction Past Psychological History: Anxiety Smoking Status: Current every day smoker - Past Family History Father Family Medical History: Cancer, Pneumonia Brother(s) Family Medical History: Cancer Additional Family Medical History / Comment(s): throat Cancer per pt Medications and Allergies Home Medications Medication Instructions Recorded Confirmed Type Chromium Picolinate 200 mcg PO DAILY 11/18/16 11/23/16 History amLODIPine [Norvasc] 5 mg PO DAILY 11/18/16 11/23/16 History levETIRAcetam [Keppra] 500 mg PO BID 11/18/16 11/23/16 History oxyCODONE-APAP 5-325MG [Percocet 1 tab PO Q4HR PRN 11/18/16 11/23/16 History 5-325 mg] Albuterol Sulfate [Ventolin Hfa] 2 puff INHALATION RT-Q6H PRN 11/23/16 11/23/16 History Ipratropium-Albuterol Nebulize 3 ml INHALATION RT-QID 11/23/16 11/23/16 History [Duoneb 0.5 mg-3 mg/3 ml Soln] Ondansetron [Zofran ODT] 4 mg PO Q8HR PRN 11/23/16 11/23/16 History Allergies Allergy/AdvReac Type Severity Reaction Status Date / Time Penicillins Allergy Rash/Hives Verified 11/23/16 13:15 Physical Exam Vitals: Vital Signs Temp Pulse Pulse Resp BP BP BP 11/24/16 07:00 97.8 F 92 20 124/69 11/23/16 22:09 18 11/23/16 20:37 97.5 F L 64 18 119/63 11/23/16 19:41 11/23/16 17:06 18 11/23/16 17:01 97.4 F L 71 16 145/76 11/23/16 16:34 97.2 F L 78 20 122/68 11/23/16 15:05 74 16 126/72 11/23/16 12:50 96.9 F L 99 18 110/73 Pulse Ox 11/24/16 07:00 90 L 11/23/16 22:09 11/23/16 20:37 95 11/23/16 19:41 94 L 11/23/16 17:06 11/23/16 17:01 100 11/23/16 16:34 11/23/16 15:05 100 11/23/16 12:50 95 Intake and Output 11/23/16 11/24/16 11/24/16 22:59 06:59 14:59 Intake Total 690 Balance 690 Intake: Intake, IV Titration 450 Amount Levofloxacin 750Mg-D5w 150 Pmx 750 mg In Dextrose/ Water 1 150ml.bag @ 100 mls/hr IVPB Q24H [facility] Rx#: [id number] Sodium Chloride 0.9% 1, 300 000 ml @ 100 mls/hr IV . Q10H [facility] Rx#:[id number] Oral 240 Other: # Voids 1 Weight 47.627 kg - Constitutional General appearance: no average body habitus, no cooperative, disheveled, mild distress, no morbidly obese, no no acute distress, no obese, no severe distress , thin - EENT Mild stomatitis along with mild oropharyngeal candidiasis. Eyes: abnormal pupil, no anicteric sclerae, no disc margins sharp, no edentulous , no EOMI, no PERRLA, no fundus normal, no photophobia, no dentition normal, no poor dentition, no ptosis, no scleral icterus, normal appearance ENT: hard of hearing, no hearing grossly normal, no NA/AT, normal oropharynx, no other, pharyngeal erythema, no thrush, no tonsillar exudates, tonsillar swelling Ears: bilateral: normal - Neck Neck: no lymphadenopathy, normal ROM, no other, no rigidity, no stridor, no thyromegaly Carotids: bilateral: upstroke normal, upstroke delayed Thyroid: bilateral: normal size - Respiratory Respiratory: bilateral: diminished, dullness, rales, rhonchi, wheezing, prolonged expiration, prolonged inspiration - Cardiovascular Rhythm: regular Heart sounds: normal: S1, S2 Abnormal Heart Sounds: systolic murmur, S3 Gallop - Gastrointestinal General gastrointestinal: no absent bowel sounds, decreased bowel sounds, distended, no hepatomegaly, hyperactive bowel sounds, no normal bowel sounds, organomegaly, no rigid, no scaphoid, soft, no splenomegaly, no tenderness, no umbilical hernia, no ventral hernia - Integumentary Integumentary: no calor, no cellulitis, no cyanotic, no decreased turgor, no flushed, jaundiced, normal, no normal turgor, pale, rash, no ulcer - Neurologic Neurologic: CNII-XII intact - Musculoskeletal Musculoskeletal: no gait normal, generalized weakness, no strength equal bilaterally, no right sided weakness, no left sided weakness - Psychiatric Psychiatric: A&O x's 3, no appropriate affect, no intact judgment & insight Results CBC & Chem 7: 11/23/16 13:29 11/23/16 13:29 Labs: Abnormal Lab Results - Last 24 Hours (Table) 11/23/16 11/23/16 11/23/16 Range/Units 13:29 13:29 13:29 WBC 13.5 H (3.8-10.6) k/uL RBC 3.45 L (4.30-5.90) m/uL Hgb 9.9 L (13.0-17.5) gm/dL Hct 30.4 L (39.0-53.0) % RDW 16.6 H (11.5-15.5) % Neutrophils # 11.4 H (1.3-7.7) k/uL APTT (22.0-30.0) sec BUN 30 H (9-20) mg/dL Total Creatine Kinase <20 L (55-170) U/L Total Protein 5.0 L (6.3-8.2) g/dL Albumin 2.2 L (3.5-5.0) g/dL Urine Protein (Negative) Urine Ketones (Negative) Urine Bilirubin (Negative) Urine Bacteria (None) /hpf Urine Mucus (None) /hpf 11/23/16 11/23/16 Range/Units 13:29 14:48 WBC (3.8-10.6) k/uL RBC (4.30-5.90) m/uL Hgb (13.0-17.5) gm/dL Hct (39.0-53.0) % RDW (11.5-15.5) % Neutrophils # (1.3-7.7) k/uL APTT 21.9 L (22.0-30.0) sec BUN (9-20) mg/dL Total Creatine Kinase (55-170) U/L Total Protein (6.3-8.2) g/dL Albumin (3.5-5.0) g/dL Urine Protein 1+ H (Negative) Urine Ketones 1+ H (Negative) Urine Bilirubin 1+ H (Negative) Urine Bacteria Rare H (None) /hpf Urine Mucus Few H (None) /hpf Thrombosis Risk Factor Assmnt - DVT/VTE Prophylaxis DVT/VTE Prophylaxis: Pharmacologic Prophylaxis ordered, Mechanical Prophylaxis ordered - Choose All That Apply Each Factor Represents 1 point: Age 41-60 years, Medical pt on bed rest Thrombosis Risk Factor Assessment Total Risk Factor Score: 2 Thrombosis Risk Factor Assessment Level: Low Risk Assessment and Plan Plan: 1 advance metastasis to lung disease from melanoma with multiple spot involvement in his lung. Continue O2 along with updraft treatment will consult pulmonary. 2 advanced metastasis brain from advanced melanoma stage IV with refractory seizure with multiple admission with recurrent seizure. Continue Keppra continue his current management. 3 severe refractory advance obstructive pneumonitis: With his lung metastasis this is more compression on the airway causing an obstructive pneumonitis along with cavitation seen this time. Continue IV antibiotics with try to cover patient for gram-negative from aspiration as well. 4 advance stage IV melanoma is all over his body patient is seen oncology and apparently was talk about some sort of treatment with Dr. Chow possibly immunotherapy which patient performance status extremely low currently on not quite sure is able to tolerate any type of treatment. 5 advance COPD: Patient still smoking currently continue patient on DuoNeb along with Pulmicort continue O2 consult pulmonary. 6 smoking cessation: Patient is agreeable to go on nicotine patch.. 7 refractory seizure: From brain metastasis continue patient on Keppra 500 mg twice a day. 8 oropharyngeal candidiasis: Continue patient on nystatin oral suspension and if needed can use Diflucan orally. 9 hypertension: Remain on amlodipine 5 mg a day. 10 chronic pain syndrome: With his current metastasis in current condition patient will be continue on smaller dose of Dilaudid along with hydrocodone. 11 Severe malnutrition: Mostly from not been able to tolerate any food or fluid and with the overall performance with his current metastasis cancer. Patient still again side if any artificial feeding PEG tube or TPN. 12 GI prophylaxis: Patient will be on Pepcid or Protonix IV. 13 DVT prophylaxis: Patient refuses heparin subcutaneous he will agree with knee -high SARAH hose and Venodyne boots. 14 family conference a meeting: I had long discussion with Bernabe and his sister apparently who is the guardian, explained to him the extreme high mortality in the next 6 weeks and that been on full code will create a lot of problem if he has cardiac arrest including the damage will create with his rib cage specially with his current condition. Patient is agreeable to be DO NOT RESUSCITATE. Also discussed with him and his sister the possibility of hospice care and patient is agreeable to it hospice will be on bring in the picture for possible discharge in to either do hospice home all her home and hospice in the next 24 hours.
[2016-11-24] MEDS ORDERED: ALBUTEROL INHALER 60 PUFF/8 GM INHALER INHALATION PRN (15:21)
--- NOTE | 2016-11-24 15:28 | P.DS ---
Providers Date of admission: 11/23/16 15:38 Expected date of discharge: 11/24/16 Attending physician: Marek Mascorro Consults: 11/23/16 15:38 Consult Physician Urgent Consulting Provider: Lisa Prieto Consult Reason/Comments: Metastatic melanoma to the lung Do you want consulting provider notified?: Yes 11/23/16 16:11 Consult Physician Urgent Consulting Provider: Cody Graham Consult Reason/Comments: Metastatic lung disease Do you want consulting provider notified?: Yes Consult Physician Urgent Consulting Provider: Milton Chow Consult Reason/Comments: Metastatic melanoma Do you want consulting provider notified?: Yes Primary care physician: Jeison Dasilva [facility] Course: 55-year-old male one of Dr. Dasilva's patient who SEEN lost at [facility] few weeks ago for refractory seizure and recurrent pneumonia patient was treated again last week at [facility] for few days and has been leaving the hospital sometimes AGAINST MEDICAL ADVICE is frustrated with the end-stage advanced melanoma with metastasis all over his body is going through his metastasis involve multiple spot in the brain multiple spot in the lungs liver and lymph node. Patient seen hematology oncology previously Allee management can be done is an immunotherapy patient had an immune suppressive condition was a contraindication. Patient was in the emergency room 2 days it earlier for worsening shortness of breath dyspnea severe weakness generalized fatigue not been able to tolerate any food or fluid and persistent nausea with significant weight loss he sign AMA at the time refused to stay in the hospital. Patient return to [facility] department at [facility] 2016 with severe generalized fatigue and weakness and tiredness not been able to tolerate any food or fluid down significant shortness of breath cough wheezes with worsening respiration at the time. Was seen and evaluated surprisingly his chest x-ray showed multiple spot of metastasis along with cavitation and refractory obstructive pneumonitis started on gram-negative coverage and admitted to the hospital with above problem. Patient and his sister met with [facility]. Patient does not want to go to the [facility] home and arrangements have been made for him to go to [facility] under the care of Dr. Mascorro. Discharge diagnoses: 1 advance metastasis to lung disease from melanoma with multiple spot involvement in his lung. 2 advanced metastasis brain from advanced melanoma stage IV with refractory seizure with multiple admission with recurrent seizure. 3 severe refractory advance obstructive pneumonitis: 4 advance stage IV melanoma is all over his body 5 advance COPD 6 smoking cessation 7 refractory seizure 8 oropharyngeal candidiasis 9 hypertension 10 chronic pain syndrome 11 Severe protein calorie malnutrition Impression and plan of care have been directed as dictated by the signing physician. Jenni Arredondo nurse practitioner acting as scribe for signing physician. Cc: Dr. Dasilva Patient Condition at Discharge: Fair Plan - Discharge Summary New Discharge Prescriptions: New Atropine Ophth Soln 1% 5Ml [Isopto Atropine 1% 5Ml] 2 drops PO Q4HR PRN #1 bottle PRN Reason: Secretions LORazepam ORAL CONC [Ativan Intensol] 2 mg PO Q4HR PRN #30 ml PRN Reason: Anxiety MORPHINE ORAL SOLN 20mg/mL [Roxanol Oral Soln Conc 20MG/ML] 5 mg PO Q4H PRN # 30 ml PRN Reason: Pain Nicotine 14Mg/24Hr Patch [Habitrol] 1 patch TRANSDERM DAILY patch Nystatin 100,000 Unit/ml Susp [Mycostatin Oral Susp] 500,000 unit PO QID dose Continue amLODIPine [Norvasc] 5 mg PO DAILY levETIRAcetam [Keppra] 500 mg PO BID Chromium Picolinate 200 mcg PO DAILY Ondansetron [Zofran ODT] 4 mg PO Q8HR PRN PRN Reason: Nausea And Vomiting Ipratropium-Albuterol Nebulize [Duoneb 0.5 mg-3 mg/3 ml Soln] 3 ml INHALATION RT-QID oxyCODONE-APAP 5-325MG [Percocet 5-325 mg] 1 tab PO Q4HR PRN #60 PRN Reason: Pain Discontinued Albuterol Sulfate [Ventolin Hfa] 2 puff INHALATION RT-Q6H PRN PRN Reason: Shortness Of Breath Discharge Medication List Chromium Picolinate 200 mcg PO DAILY 11/18/16 [History] amLODIPine [Norvasc] 5 mg PO DAILY 11/18/16 [History] levETIRAcetam [Keppra] 500 mg PO BID 11/18/16 [History] Ipratropium-Albuterol Nebulize [Duoneb 0.5 mg-3 mg/3 ml Soln] 3 ml INHALATION RT -QID 11/23/16 [History] Ondansetron [Zofran ODT] 4 mg PO Q8HR PRN 11/23/16 [History] Atropine Ophth Soln 1% 5Ml [Isopto Atropine 1% 5Ml] 2 drops PO Q4HR PRN #1 bottle 11/24/16 [Rx] LORazepam ORAL CONC [Ativan Intensol] 2 mg PO Q4HR PRN #30 ml 11/24/16 [Rx] MORPHINE ORAL SOLN 20mg/mL [Roxanol Oral Soln Conc 20MG/ML] 5 mg PO Q4H PRN #30 ml 11/24/16 [Rx] Nicotine 14Mg/24Hr Patch [Habitrol] 1 patch TRANSDERM DAILY patch 11/24/16 [Rx] Nystatin 100,000 Unit/ml Susp [Mycostatin Oral Susp] 500,000 unit PO QID dose 11/24/16 [Rx] oxyCODONE-APAP 5-325MG [Percocet 5-325 mg] 1 tab PO Q4HR PRN #60 11/24/16 [Rx] Follow up Appointment(s)/Referral(s): Jeison Dasilva MD [Primary Care Provider] - As Needed Discharge Disposition: TRANSFER TO SNF/ECF
[2016-11-24 15:41] VITALS: BP 129/76; PULSE 93; RESP 18; TEMP 97.1
[2016-11-24] MEDS ORDERED: LEVOFLOXACIN 750MG-D5W PMX 750 MG in DEXTROSE/WATER 1 150ML.BAG IVPB SCH (17:00)
--- NOTE | 2016-11-24 17:08 | P.CONS ---
History of Present Illness - Reason for Consult Consult date: 11/24/16 metastatic melanoma Requesting physician: Ole Orantes - Chief Complaint abd pain - History of Present Illness Patient is a pleasant male who was [address] Chow August of 2016. On initial presentation to the hospital he had c/o upper abdominal pain made worse by eating over the previous 6 weeks, also intermittent chest pain over the past year. CXR revealed multiple lung nodules leading to CT CAP which showed adenopathy above and below the diaphragm, bilateral lung nodules as well as soft tissue masses. He was admitted and had a biopsy of a lower back nodule and was discharged. Pt had large melanoma removed from his back in 2014 with no f/u. Biopsy was positive for melanoma, CT brain revealed bilateral frontal masses with edema, he was started on decadron and referred to Rad/Onc. He completed XRT in 11/01. He had 2 admissions to [facility] for abdominal pain and weakness which has delayed starting treatment. He was seen in the office on 11/13. His tumor was BRAF positive and treatment with oral Tafinlar/ Trametinib was recommended, he and his family understood that his cancer is not curable and the objective of treatment was prolongation of life and palliation of symptoms. Unfortunately pt is again admitted with abdominal pain and weakness. Pt denied nausea or vomiting, has no appetite, feels very weak, his pain is generalized in his abd, constant, aching, denies constipation or diarrhea, his only relief is pain meds. Review of Systems All systems: negative Past Medical History Past Medical History: Cancer, Hypertension, Seizure Disorder Additional Past Medical History / Comment(s): Stage IV Melanoma - multiple tumors all over body History of Any Multi-Drug Resistant Organisms: None Reported Past Surgical History: No Surgical Hx Reported Past Anesthesia/Blood Transfusion Reactions: No Reported Reaction Past Psychological History: Anxiety Smoking Status: Current every day smoker - Past Family History Father Family Medical History: Cancer, Pneumonia Brother(s) Family Medical History: Cancer Additional Family Medical History / Comment(s): throat Cancer per pt Medications and Allergies Home Medications Medication Instructions Recorded Confirmed Type Chromium Picolinate 200 mcg PO DAILY 11/18/16 11/23/16 History amLODIPine [Norvasc] 5 mg PO DAILY 11/18/16 11/23/16 History levETIRAcetam [Keppra] 500 mg PO BID 11/18/16 11/23/16 History Ipratropium-Albuterol Nebulize 3 ml INHALATION RT-QID 11/23/16 11/23/16 History [Duoneb 0.5 mg-3 mg/3 ml Soln] Ondansetron [Zofran ODT] 4 mg PO Q8HR PRN 11/23/16 11/23/16 History Allergies Allergy/AdvReac Type Severity Reaction Status Date / Time Penicillins Allergy Rash/Hives Verified 11/23/16 13:15 Physical Exam Vitals: Vital Signs Temp Pulse Resp BP Pulse Ox 11/24/16 15:00 97.1 F L 93 18 129/76 91 L 11/24/16 07:00 97.8 F 92 20 124/69 90 L 11/23/16 22:09 18 11/23/16 20:37 97.5 F L 64 18 119/63 95 11/23/16 19:41 94 L 11/23/16 17:06 18 11/23/16 17:01 97.4 F L 71 16 145/76 100 Intake and Output 11/24/16 11/24/16 11/24/16 06:59 14:59 22:59 Other: # Voids 1 2 Weight 47.627 kg Patient Weight 11/25/16 06:59 Weight 47.627 kg - Constitutional General appearance: mild distress, thin - EENT Eyes: anicteric sclerae - Neck bilateral anterior cervical lymph nodes visible and palpable, hard, fixed, axillary lymph nodes and multiple subcutaneous nodules Neck: lymphadenopathy - Respiratory Respiratory: bilateral: diminished - Cardiovascular Rhythm: regular Heart sounds: normal: S1, S2 Abnormal Heart Sounds: no systolic murmur, no diastolic murmur, no rub, no S3 Gallop, no S4 Gallop, no click, no other foot Peripheral Edema: bilateral: 3+, Pitting - Gastrointestinal General gastrointestinal: scaphoid Localized gastrointestinal: tender: diffuse, guarding: diffuse - Musculoskeletal Musculoskeletal: generalized weakness - Psychiatric arouses to voice, answers questions, knows he should be taking medicine Results CBC & Chem 7: 11/23/16 13:29 11/23/16 13:29 CT scan - abdomen: report reviewed CT scan - pelvis: report reviewed Assessment and Plan (1) Metastatic melanoma Narrative/Plan: BRAF positive. Pt had a melanoma removed in 2014 with no medical oncologist follow up. He presented earlier this year with metastatic disease. He was going to start oral therapy but unfortunately he has had multiple hospitalizations for uncontrolled pain. From chart review it appears that pt and family have opted for care at [facility] and transition to hospice. Contacted the unit and it was confirmed with me that pt family refused delivery of oral melanoma medication. Status: Chronic
--- NOTE | 2016-11-25 07:55 | CONS ---
This is a 55-year-old gentleman with history of metastatic melanoma. He apparently has mets to the neck and lung. He came into the hospital because he has not been able to eat. He has been very, very weak. Not a particularly good historian. The patient came and sat upright in bed on his own. No nausea. Has not been able to eat or drink very much at all. He does apparently have some abdominal pain, which is chronic in nature. No fever, no chills. No cough. No phlegm production. No chest pain. Again, very poor historian. His home medications include chromium, amlodipine, Keppra, Percocet, albuterol inhaler, Atrovent by nebulization, DuoNeb and Zofran. Allergies are PENICILLIN. Medical history is apparently positive for hypertension as well as seizure disorder and metastatic melanoma. He denies any significant surgical history. Social history is positive for ongoing tobacco use. No alcohol use. No illicit drug use. Family history is not well documented. Occupational history is not known. Again, a very poor historian. Review of systems is somewhat unreliable, but his major issues are weakness and poor oral intake of both food and fluid. Current vital signs include a temperature 97.8, heart rate 64, respiratory rate 18, blood pressure 124/69, mean 87 and room air saturation 95%. Appears in no acute distress. He barely can open his eyes. Very weak and cachetic looking. HEENT EXAMINATION: Grossly unremarkable. NECK: Supple. Cardiovascular examination reveals distant heart sounds. S1, S2 normal. Lungs reveal mostly clear breath sounds. A few scattered rhonchi. ABDOMEN: Soft. Extremities are intact. No cyanosis, clubbing or edema. SKIN: Without rash. NEUROLOGIC EXAMINATION: Difficult to perform. Labs include a white count of 13.5, hemoglobin 9.9, hematocrit 30.4, platelet count 403,000. PT, INR normal. PTT 21.9. Sodium, potassium, chloride, CO2 all normal. BUN and creatinine were 30 and 0.7 suggesting prerenal azotemia. The rest of the labs look okay. Albumin is only 2.2. Urine shows 1+ bilirubin and 1+ ketones, 1+ protein, rare bacteria. Microbiology is all negative. Medications are reviewed. He is on updrafts albuterol. He is on amlodipine and Dilaudid, DuoNeb, Keppra, Levaquin, which has been discontinued and then restarted; nicotine patch, Zofran. ASSESSMENT: 1. Metastatic melanoma with metastasis to the lung and neck. 2. History of hypertension. 3. Seizure disorder. 4. Possible chronic obstructive pulmonary disease. 5. Ongoing tobacco use. PLAN: Will continue to follow. Probably he would benefit more from the updrafts than from the albuterol inhaler so that will be discontinued. Will continue to follow. I am not sure why he is on the antibiotic. No additional recommendations are made. Prognosis is poor and code status should certainly be addressed. MTDD
[2016-11-25] MEDS ORDERED: LEVOFLOXACIN 750 MG TAB PO SCH (17:00)
--- NOTE | 2016-11-26 13:51 | CDI ---
In responding to this query, please exercise your independent professional judgment. The [facility] Coding Staff and Clinical Documentation Specialists appreciate your assistance in clarifying documentation, maintaining compliance with coding guidelines, accurately documenting patients condition and capturing severity of illness. The fact that a question is asked does not imply that any particular answer is desired or expected. Communication forms are a method of clarifying documentation and are not made part of the Legal Health Record. Thank you in advance for your clarification. Last Revision, March 2015 Stan Ray [address] [place] [address] Documentation Clarification Form Date: 11/26/2016 1:38:00 PM From: Elda Baker [facility] & Marisol Aguillon, [employer] Marisol = [phone] Admit Date: 11/23/2016 3:38:00 PM Patient Name: Maximo Pantoja Visit Number: [id number] Discharge Date: 11-24-16 Jenni Arredondo, SUPERVISOR [employer]ER COMPLAINT SERVICE-C: A pressure ulcer was documented in the nurses notes and dietary notes. History/Risk Factors: Severe malnutrition, melanoma of skin (many areas) with mets to brain, liver, lung, lymph nodes. BMI 19.8. Made DNR and Palliative Care. COPD with obstructive pneumonitis, smoker, seizures, non compliance, dehydration, candidiasis stomatitis, chronic pain syndrome Location: R buttock Wound description: RN states =.5 x .5, stage II, no drainage-photo on chart. Treatment: Order for Optifoam Liquitrap bordered [address] Mascorro on 11-23-16 Consults: Pulmonary and Oncology Elements for accurate and compliant documentation of an ulcer: * The location/laterality of the ulcer * Etiology (decubitus/pressure, diabetic, PVD) * Stage I-IV, Unstageable, Suspected Deep Tissue Injury (To the deepest stage) * If the ulcer was present at admission (POA) or occurred after admission In your professional opinion, can you please clarify the diagnosis, location, laterality and whether present on admission (POA): Stage 1 Pressure/Decubitus Ulcer (intact skin, non-blanching redness of local area) Stage 2 Pressure/Decubitus Ulcer (Partial thickness, loss of dermis, pink wound bed) Stage 3 Pressure/Decubitus Ulcer (Full thickness tissue loss) Stage 4 Pressure/Decubitus Ulcer (Full thickness tissue loss with exposed bone, tendon, or muscle. May have slough or eschar present) Unstageable Unable to determine Other condition, please specify * Please indicate cause (if known). Please document in your progress notes and discharge summary in order to capture severity of illness and risk of mortality. Include clinical findings that support your diagnosis. FYI: Press F11 to launch patient chart. Place X here if this finding has no clinical significance, is not applicable or if you are not able to provide any additional documentation. SARANYA
== END 2016-11-24 17:50 | DRG 640 ==
LOC: EC 12:47 → 5ONC 15:38 → EC 16:15
PROVIDERS: ADMIT Internal Medicine Geriatric Medicine; ATTEND Internal Medicine Geriatric Medicine
DX: E86.0 Dehydration (principal); E43 Unspecified severe protein-calorie malnutrition; B37.89 Other sites of candidiasis; J18.8 Other pneumonia, unspecified organism; R64 Cachexia; C77.9 Secondary and unspecified malignant neoplasm of lymph node, unspecified; L89.312 Pressure ulcer of right buttock, stage 2; B37.0 Candidal stomatitis; J44.0 Chronic obstructive pulmonary disease with (acute) lower respiratory infection; C79.31 Secondary malignant neoplasm of brain; C78.00 Secondary malignant neoplasm of unspecified lung; C79.89 Secondary malignant neoplasm of other specified sites; G40.802 Other epilepsy, not intractable, without status epilepticus; C78.7 Secondary malignant neoplasm of liver and intrahepatic bile duct; Z68.1 Body mass index [BMI] 19.9 or less, adult; C43.59 Malignant melanoma of other part of trunk; Z51.5 Encounter for palliative care; Z66 Do not resuscitate; T45.1X6A Underdosing of antineoplastic and immunosuppressive drugs, initial encounter; J44.9 Chronic obstructive pulmonary disease, unspecified; C43.9 Malignant melanoma of skin, unspecified; R53.1 Weakness; H91.90 Unspecified hearing loss, unspecified ear; I10 Essential (primary) hypertension; F41.9 Anxiety disorder, unspecified; G89.4 Chronic pain syndrome; F17.200 Nicotine dependence, unspecified, uncomplicated; Z88.0 Allergy status to penicillin; Z87.01 Personal history of pneumonia (recurrent); Z79.899 Other long term (current) drug therapy; Z80.8 Family history of malignant neoplasm of other organs or systems; Z79.891 Long term (current) use of opiate analgesic; Z71.3 Dietary counseling and surveillance; Z71.6 Tobacco abuse counseling; Z92.3 Personal history of irradiation; Z91.14 Patient's other noncompliance with medication regimen; Z91.19 Patient's noncompliance with other medical treatment and regimen
CPT/HCPCS: 36415; 74177; 80053; 81001; 82550; 82553; 83605; 83735; 84484; 85025; 85610; 85730; 93005; 96360; 96361; 99285